=== PATIENT | male | born 1965 | race Caucasian/White ===

== ENCOUNTER 2019-07-21 06:13 | Observation (INO) ==
[2019-07-21] MEDS ORDERED: Aspirin 81 MG TAB.CHEW PO ONE (06:16)
[2019-07-21] MEDS ORDERED: Isovue-370 500 ML BOTTLE IVP ONE (06:31)
[2019-07-21 06:37] LABS: Basophils % 0.2 %; Eosinophils % 0.2 %; Hematocrit 44.1 % (37.5-50.1); Immature Granulocytes % 0.2 % (0-4); Lymphocytes % 8.2 %; Mean Corpuscular Hemoglobin 31.3 pg (28.0-33.3); Mean Corpuscular Volume 92.1 fL (83.0-100.0); Mean Platelet Volume 9.3 fL (9.4-12.4); Monocytes # 0.8 K/mcL (0.0-1.3); Monocytes % 6.9 %; Neutrophils # 10.3 K/mcL (1.6-8.9); Platelet Count 165 K/mcL (140-400); Red Blood Count 4.79 M/mcL (4.19-5.50); Red Cell Distribution Width 12.5 % (11.5-14.5); Segmented Neutrophils % 84.3 %; White Blood Count 12.3 K/mcL (4.3-11.1)
[2019-07-21] MEDS: Nitroglycerin 0.4 MG TAB.SUBL SL SCH ×3 (06:37→06:47)
[2019-07-21 06:42] LABS: Prothrombin Time 11.4 Seconds (9.4-12.1)
[2019-07-21 06:44] LABS: Activated Partial Thrombo Time 38.4 Seconds (26.0-36.0)
--- NOTE | 2019-07-21 06:44 | Emergency Department Note ---
Disposition Clinical Impression: Chest pain, rule out acute myocardial infarction Dyspnea Qualifiers: Dyspnea type: unspecified Qualified Code(s): R06.00 - Dyspnea, unspecified Disposition: Admitted As Inpatient Condition: Fair Referrals: Nat Souza CNP [Primary Care Provider] - Forms: ED Satisfaction Letter Time of Disposition: 08:17 Chest Pain HPI - General Chief Complaint: ED Arrhythmia/Palpitations Stated Complaint: CP Time Seen by Provider: 07/21/19 06:16 Source: patient Mode of arrival: ambulatory Limitations: no limitations Vital Signs Reviewed: Yes Nursing Notes Reviewed: Yes - History of Present Illness HPI Narrative: Alert and oriented nontoxic-appearing 53-year-old male presents for evaluation of nonradiating substernal chest pain that he describes as a pressure. Symptoms began earlier yesterday evening while at work and gradually worsened. He states the symptoms worsened significantly by around 10:00 yesterday evening. His pain is worsened with inspiration. It is not reproducible with palpation. He denies any significant productive cough or hemoptysis. He denies any associated fever, chills, nausea, vomiting, diaphoresis, or abdominal pain. He does state that he feels short of breath due to the pain. He denies any pain or swelling of the lower extremities. He denies any prior history of DVT or pulmonary embolism but does state a history of "neck cancer". In the past that he has received several rounds of chemotherapy for. He denies any prior cardiac history aside from an instance of pericarditis back in 1993. He denies any significant family cardiac history. Pt complaint: chest pain Onset (ago): hour(s) Duration: gradually worsening Onset: during exertion Pain Location: substernal Severity: severe Severity scale (1-10): 10 Quality: heaviness Pain Radiation: none Improves with: nothing Worsens with: inspiration Associated symptoms: Reports: dyspnea. Denies: nausea, vomiting, diaphoresis, syncope, palpitations, fever, cough, leg swelling Treatments prior to arrival chest pain: aspirin (81mg just prior to arrival) - Related Data Home Medications Medication Instructions Recorded Confirmed No Known Home Drugs 02/18/18 02/18/18 Allergies Allergy/AdvReac Type Severity Reaction Status Date / Time No Known Allergies Allergy Verified 02/18/18 08:03 All systems ED: reviewed and negative except as stated. Review of Systems: As Per HPI Constitutional: Denies: fever, chills, weakness, weight change Eyes: Denies: eye pain, eye discharge, vision change ENT ED: Denies: ear pain, throat pain, dental pain, hearing loss, epistaxis, congestion, dysphagia Cardiovascular: Reports: as per HPI, chest pain, dyspnea on exertion. Denies: palpitations, edema, syncope Respiratory: Reports: as per HPI, dyspnea. Denies: cough, wheezes, hemoptysis, stridor Gastrointestinal: Denies: abdominal pain, nausea, vomiting, diarrhea, constipation, hematemesis, melena, hematochezia Genitourinary: Denies: urgency, dysuria, frequency, hematuria Musculoskeletal: Denies: back pain, neck pain, arthralgia, myalgia Integumentary: Denies: rash, abrasion, lesions Neurological: Denies: headache, weakness, numbness, paresthesias, confusion, abnormal gait, vertigo Psychiatric: Denies: anxiety, depression, suicidal thoughts, homicidal thoughts, auditory hallucinations, visual hallucinations Endocrine: Denies: fatigue Hematological/Lymphatic: Denies: easy bleeding, easy bruising Allergic/Immunologic: Denies: facial swelling, urticaria Chest Pain PMH - Past Medical History Medical history: Reports: cancer Surgical history: Reports: herniorrhaphy, other Psychiatric history: Reports: no psych history - Social History Smoking Status: Never smoker Alcohol use: Reports: none Drug use: Reports: none Physical Exam - General General appearance: alert - Head Head exam: atraumatic, normocephalic, normal inspection - Eye Eye exam: Present: normal appearance, PERRL, EOMI. Absent: conjunctival injection - ENT ENT exam: mucous membranes moist - Neck Neck exam: Present: normal inspection, full ROM, trachea midline. Absent: meningismus - Chest Chest inspection: Present: normal inspection, symmetric chest wall rise. Absent: tenderness - Respiratory Respiratory exam: Present: normal lung sounds bilaterally. Absent: respiratory distress, wheezes, stridor, accessory muscle use, prolonged expiratory phase - Cardiovascular Cardiovascular exam: Present: normal rhythm, tachycardia, normal heart sounds - Abdominal Exam Abdominal exam: Present: soft, Non-Tender, normal bowel sounds - Extremities Exam Extremities exam: Present: normal inspection, full ROM. Absent: tenderness, pedal edema - Neurological Exam Neurological exam: Present: alert, oriented X3 - Psychiatric Psychiatric exam: Present: normal affect, normal mood - Skin Skin exam: Present: warm, dry, intact, normal color. Absent: rash, cyanosis, diaphoresis, pallor Course Course Narrative: 0652: I was informed of the patient's nurse the patient became hypotensive with a systolic of 73 after the third sublingual nitroglycerin. Presented to the room. The patient stated that he is no longer experiencing pain at rest although the pain with inspiration persist. He did become slightly diaphoretic. He also complains of some nausea. Zofran has been ordered. A repeat EKG was performed at 0657 and again shows sinus tachycardia at a rate of 107 bpm. CA interval 136, QRS duration 85, QT/QTc interval 348/465. Nonspecific ST elevation in leads 1 and V6 however did not meet STEMI criteria per Dr. Babcock. Dr. Babcock reviewed this repeat EKG as well. 0743: EKG repeated at this point. EKG again shows sinus tachycardia at a rate of 101 bpm without STEMI criteria. EKG reviewed by Dr. Mendel Zambrano as well. The patient states that his pain is nearly resolved at this point and his work of breathing has significantly improved. He is agreeable to admission to the hospital service for ACS rule out. 0815: I spoke with the admitting hospitalist, Dr. Lowry. The patient has been accepted to the hospitalist service for further evaluation and management. Vital Signs Temperature 98.4 F 07/21/19 06:15 Pulse Rate 115 07/21/19 06:15 Respiratory Rate 18 07/21/19 06:15 Blood Pressure 147/106 07/21/19 06:15 O2 Sat by Pulse Oximetry 100 07/21/19 06:15 Temperature 98.4 F 07/21/19 06:15 Pulse Rate 98 07/21/19 07:15 Respiratory Rate 18 07/21/19 07:15 Blood Pressure 105/54 07/21/19 07:15 O2 Sat by Pulse Oximetry 99 07/21/19 07:15 Oxygen Delivery Oxygen Delivery Nasal Cannula Chest Pain - Medical Records Medical records reviewed: Yes I reviewed the patient's medical records. - Lab Data Lab results reviewed: Yes I reviewed the patient's lab results. Lab results narrative: Lab Results 07/21/19 07/21/19 07/21/19 Range/Units 06:18 06:18 06:18 WBC 12.3 H (4.3-11.1) K/mcL RBC 4.79 (4.19-5.50) M/mcL Hgb 15.0 (12.9-16.9) g/dL Hct 44.1 (37.5-50.1) % MCV 92.1 (83.0-100.0) fL MCH 31.3 (28.0-33.3) pg MCHC 34.0 (31.6-35.5) g/dL RDW 12.5 (11.5-14.5) % Plt Count 165 (140-400) K/mcL MPV 9.3 L (9.4-12.4) fL Immature Gran % 0.2 (0-4) % Seg Neutrophils % 84.3 % Lymphocytes % 8.2 % Monocytes % 6.9 % Eosinophils % 0.2 % Basophils % 0.2 % Neutrophils # 10.3 H (1.6-8.9) K/mcL Lymphocytes # 1.0 (0.6-4.6) K/mcL Monocytes # 0.8 (0.0-1.3) K/mcL Eosinophils # 0.0 (0.0-0.6) K/mcL Basophils # 0.0 (0.0-0.2) K/mcL PT 11.4 (9.4-12.1) Seconds INR 1.0 APTT 38.4 H (26.0-36.0) Seconds Sodium 136 (136-145) mEq/L Potassium 4.0 (3.5-5.1) mEq/L Chloride 101 (98-107) mEq/L Carbon Dioxide 27 (23-29) mEq/L BUN 19 (6-20) mg/dL Creatinine 1.07 (0.70-1.30) mg/dL Est GFR ( Amer) > 60 (> 60) Est GFR (Non-Af Amer) > 60 (> 60) BUN/Creatinine Ratio 18 (6-26) Glucose 118 H (70-105) mg/dL Calculated Osmolality 285 (280-300) Calcium 10.0 (8.6-10.3) mg/dL Magnesium 1.9 (1.6-2.6) mg/dL Troponin I < 0.03 (< 0.04) ng/mL B-Natriuretic Peptide (Less than 100) pg/mL 07/21/19 Range/Units 06:18 WBC (4.3-11.1) K/mcL RBC (4.19-5.50) M/mcL Hgb (12.9-16.9) g/dL Hct (37.5-50.1) % MCV (83.0-100.0) fL MCH (28.0-33.3) pg MCHC (31.6-35.5) g/dL RDW (11.5-14.5) % Plt Count (140-400) K/mcL MPV (9.4-12.4) fL Immature Gran % (0-4) % Seg Neutrophils % % Lymphocytes % % Monocytes % % Eosinophils % % Basophils % % Neutrophils # (1.6-8.9) K/mcL Lymphocytes # (0.6-4.6) K/mcL Monocytes # (0.0-1.3) K/mcL Eosinophils # (0.0-0.6) K/mcL Basophils # (0.0-0.2) K/mcL PT (9.4-12.1) Seconds INR APTT (26.0-36.0) Seconds Sodium (136-145) mEq/L Potassium (3.5-5.1) mEq/L Chloride (98-107) mEq/L Carbon Dioxide (23-29) mEq/L BUN (6-20) mg/dL Creatinine (0.70-1.30) mg/dL Est GFR ( Amer) (> 60) Est GFR (Non-Af Amer) (> 60) BUN/Creatinine Ratio (6-26) Glucose (70-105) mg/dL Calculated Osmolality (280-300) Calcium (8.6-10.3) mg/dL Magnesium (1.6-2.6) mg/dL Troponin I (< 0.04) ng/mL B-Natriuretic Peptide 11 (Less than 100) pg/mL Result diagrams: 07/21/19 06:18 07/21/19 06:18 Lab Results 07/21/19 07/21/19 07/21/19 Range/Units 06:18 06:18 06:18 WBC 12.3 H (4.3-11.1) K/mcL RBC 4.79 (4.19-5.50) M/mcL Hgb 15.0 (12.9-16.9) g/dL Hct 44.1 (37.5-50.1) % MCV 92.1 (83.0-100.0) fL MCH 31.3 (28.0-33.3) pg MCHC 34.0 (31.6-35.5) g/dL RDW 12.5 (11.5-14.5) % Plt Count 165 (140-400) K/mcL MPV 9.3 L (9.4-12.4) fL Immature Gran % 0.2 (0-4) % Seg Neutrophils % 84.3 % Lymphocytes % 8.2 % Monocytes % 6.9 % Eosinophils % 0.2 % Basophils % 0.2 % Neutrophils # 10.3 H (1.6-8.9) K/mcL Lymphocytes # 1.0 (0.6-4.6) K/mcL Monocytes # 0.8 (0.0-1.3) K/mcL Eosinophils # 0.0 (0.0-0.6) K/mcL Basophils # 0.0 (0.0-0.2) K/mcL PT 11.4 (9.4-12.1) Seconds INR 1.0 APTT 38.4 H (26.0-36.0) Seconds Sodium 136 (136-145) mEq/L Potassium 4.0 (3.5-5.1) mEq/L Chloride 101 (98-107) mEq/L Carbon Dioxide 27 (23-29) mEq/L BUN 19 (6-20) mg/dL Creatinine 1.07 (0.70-1.30) mg/dL Est GFR ( Amer) > 60 (> 60) Est GFR (Non-Af Amer) > 60 (> 60) BUN/Creatinine Ratio 18 (6-26) Glucose 118 H (70-105) mg/dL Calculated Osmolality 285 (280-300) Calcium 10.0 (8.6-10.3) mg/dL Magnesium 1.9 (1.6-2.6) mg/dL Troponin I < 0.03 (< 0.04) ng/mL B-Natriuretic Peptide (Less than 100) pg/mL 07/21/19 Range/Units 06:18 WBC (4.3-11.1) K/mcL RBC (4.19-5.50) M/mcL Hgb (12.9-16.9) g/dL Hct (37.5-50.1) % MCV (83.0-100.0) fL MCH (28.0-33.3) pg MCHC (31.6-35.5) g/dL RDW (11.5-14.5) % Plt Count (140-400) K/mcL MPV (9.4-12.4) fL Immature Gran % (0-4) % Seg Neutrophils % % Lymphocytes % % Monocytes % % Eosinophils % % Basophils % % Neutrophils # (1.6-8.9) K/mcL Lymphocytes # (0.6-4.6) K/mcL Monocytes # (0.0-1.3) K/mcL Eosinophils # (0.0-0.6) K/mcL Basophils # (0.0-0.2) K/mcL PT (9.4-12.1) Seconds INR APTT (26.0-36.0) Seconds Sodium (136-145) mEq/L Potassium (3.5-5.1) mEq/L Chloride (98-107) mEq/L Carbon Dioxide (23-29) mEq/L BUN (6-20) mg/dL Creatinine (0.70-1.30) mg/dL Est GFR ( Amer) (> 60) Est GFR (Non-Af Amer) (> 60) BUN/Creatinine Ratio (6-26) Glucose (70-105) mg/dL Calculated Osmolality (280-300) Calcium (8.6-10.3) mg/dL Magnesium (1.6-2.6) mg/dL Troponin I (< 0.04) ng/mL B-Natriuretic Peptide 11 (Less than 100) pg/mL - Radiology Data Radiology results reviewed: Yes I reviewed the patient's radiology results. Chest CTA 07/21/19 07:37 IMPRESSION: No evidence of pulmonary embolism or significant pulmonary abnormality. D/ / Ysabel Smith MD / Ysabel Smith MD Interpreting Provider: Ysabel Smith MD - EKG Data EKG attestation: Yes I reviewed and interpreted this EKG. EKG results narrative: EKG shows a sinus tachycardia at a rate of 115 bpm. CA interval 146, QRS duration 85, QT/QTc interval 327/453. No ectopy noted. No significant ST elevations or depressions. No significant change in morphology when compared to an EKG dated from 12/02/1996.
[2019-07-21] MEDS ORDERED: 0.9 % Sodium Chloride 500 ML IVC ONE ×2 (06:52)
[2019-07-21] MEDS ORDERED: 0.9 % Sodium Chloride 500 ML ONE (06:53)
[2019-07-21 06:54] LABS: BUN/Creatinine Ratio 18 (6-26); Blood Urea Nitrogen 19 mg/dL (6-20); Carbon Dioxide 27 mEq/L (23-29); Chloride 101 mEq/L (98-107); Glucose 118 mg/dL (70-105); Magnesium 1.9 mg/dL (1.6-2.6); Osmolality,Calculated 285 (280-300); Sodium 136 mEq/L (136-145); Troponin I < 0.03 ng/mL (< 0.04); eGFR For African Americans > 60 (> 60); eGFR For Non-African Americans > 60 (> 60)
[2019-07-21] MEDS ORDERED: Ondansetron 4 MG/2 ML VIAL ONE (06:59)
[2019-07-21] MEDS: Ondansetron 4 MG/2 ML VIAL IVP ONE ×2 (07:00→07:03)
--- NOTE | 2019-07-21 08:54 | Internal Med History&Physical ---
Date of Encounter: 07/21/19 Time of Encounter: 08:52 Internal Medicine - H&P: HPI Chief complaint: chest pain Admitted From: Home Plans for Post Hospital Care: Home History of present illness: Mr. Beasley is a 53 year old male past medical history of neck cancer status post chemoradiation about 2 years ago, history of pericarditis and 1993 when he had LHC which was unremarkable came in with complaint of chest pain that has been ongoing for past 2 days. Patient's symptoms started with some dizziness for about 2 weeks. Since last 2-3 days has been having waxing and waning chest pain which is substernal in nature and nonradiating. It has gradually increased in intensity and was severe this morning enough to make him to come to the hospital about 10/10 in intensity. It is associated with sensation of dyspnea. P atient's pain was worsened with deep inspiration and lying flat Denies any fevers chills returned nose or sore throat. Has raspy voice at baseline since his neck surgery. Denies any diarrhea or decreased oral intake. Denies any syncopal events. He is otherwise healthy without any history of heart disease. Is otherwise physically active. Has history of hiatal hernia but denies any history of reflux. He is not taking any medications at home. Denies any allergies. Denies any lower extremity swelling. Patient was seen in the ER and was evaluated with lab significant for WBC of 12.3, minimally elevated glucose. Patient was given nitroglycerin which relieved his pain significantly however did drop his blood pressure which recovered and was associated with some dizziness. Patient also also given aspirin 324 mg and 1 L NS. Patient's EKG did not show some diffuse mild ST elevation however without STEMI criteria. CTA of chest did not show any PE and showed bilateral lower lobe atelectasis with no signs of infiltrate. Admission was requested for ACS rule out. Patient was examined on the floor where he seated had some chest discomfort on deep inspiration. Past Med Surg Social Fam HX - Past Medical History Medical history: cancer Additional medical history: pariocarditis heart cath, throat cancer with radiation and peg tube Psychiatric history: no psych history - Past Surgical History Surgical History: herniorrhaphy, other Additional surgical history: vasectomy, neck sx - Social History Smoking Status: Never smoker Smokeless Tobacco Status: No Alcohol use: none Drug use: none - Additional Family History Additional family history: no known family history Internal Medicine - H&P: Meds No Known Home Drugs 02/18/18 [History] Allergy/AdvReac Type Severity Reaction Status Date / Time No Known Allergies Allergy Verified 02/18/18 08:03 All Systems PM: A 10-system review of systems was performed and is negative for pertinent findings except as documented above in the HPI. - Constitutional Vitals: Temp Pulse Resp BP Pulse Ox 98.4 F 94 18 123/86 100 07/21/19 06:15 07/21/19 08:31 07/21/19 08:31 07/21/19 08:31 07/21/19 08:31 Exam: Constitutional: Vitals as noted. Conversant. No Apparent Distress. Eyes : Sclera white, conjunctiva clear, no lid lag, PEARLA. ENT : Grossly normal hearing. Moist mucus membranes. No JVD, no cervical lymphadenopathy. no thyromegaly or mass. Respiratory : No accessory muscle use, rales, rhonchi or wheezes. Crackles at base, not taking deep breaths due to pain Cardiovascular : RRR, +S1, +S2. no murmur, gallop, rubs. No chest wall tenderness GI/Abdominal : Soft, Non-tender, Non-distended, normal bowel sounds, soft, no peritoneal signs. no orgenomegaly or mass appreciated. no hernia. Musculoskeletal: no deformity noted. no edema or cyanosis. warm extremities, pulses palpable and symmetrical in UE/LE. no calf tenderness. Neurological: AO X3, CN II-XII grossly intact, grossly normal motor and sensory exam. Skin: No skin rash, lesions or ulcers noted. Pych: Good insight and judgement. Intact memory. AOx3. Internal Med - H&P Results - Labs CBC & Chem 7: 07/21/19 06:18 07/21/19 06:18 Labs: Short CBC 07/21/19 Range/Units 06:18 WBC 12.3 H (4.3-11.1) K/mcL Hgb 15.0 (12.9-16.9) g/dL Hct 44.1 (37.5-50.1) % Plt Count 165 (140-400) K/mcL Neutrophils # 10.3 H (1.6-8.9) K/mcL BMP 07/21/19 06:18 Sodium 136 Potassium 4.0 Chloride 101 Carbon Dioxide 27 BUN 19 Creatinine 1.07 Glucose 118 H Calcium 10.0 Cardiac Enzymes 07/21/19 Range/Units 06:18 Troponin I < 0.03 (< 0.04) ng/mL - EKG Data -: EKG Interpreted by Myself EKG shows normal: sinus rhythm Rate: tachycardia (half-[address] elevateion in I, II, v4, v5, v6 with UT depressioin) - EKG Data Prior EKG available for review: yes When compared to previous EKG: there is no significant change - Impressions ITS Impressions Chest CTA 07/21/19 07:37 IMPRESSION: No evidence of pulmonary embolism or significant pulmonary abnormality. D/ / Ysabel Smith MD / Ysabel Smith MD Interpreting Provider: Ysabel Smith MD - Assessment and Plan (1) Chest pain, rule out acute myocardial infarction Current Visit: Yes Status: Acute Assessment and plan: Patient's chest pain is positional and pleuritic in nature. EKG also with signs of pericarditis without any STEMI criteria. Troponin negative 1 We will keep patient on telemetry and trend troponin. We will obtain echoc ardiogram. CT of chest without any PE with bilateral basilar atelectasis. Patient has mild elevated WBCs which could be due to viral etiology, however patient without any symptoms. We will obtain respiratory infectious panel. We will start patient on treatment for pericarditis with aspirin and colchicine. We will obtain CRP and a pro-calcitonin. We will obtain A1c and lipid panel. We will consider stress test or cardiology consultation depending on further workup. (2) DVT prophylaxis Current Visit: Yes Status: Acute Assessment and plan: low risk ambulatory. - Time Spent With Patient Total time spent is greater than 50% in coordination of care (as documented) at patient's floor/unit and/or counseling patient:
[2019-07-21] MEDS ORDERED: Naloxone 0.4 MG/ML INJ IVP PRN (09:33)
[2019-07-21 10:47] LABS: Estimated Average Glucose 108 mg/dl
[2019-07-21] MEDS: Colchicine 0.6 MG TABLET PO SCH ×2 (10:48→20:18)
[2019-07-21 10:50] LABS: Chol/HDL Ratio 4.3 (0-4.9); Cholesterol 251 mg/dL (< 200); HDL Cholesterol 59 mg/dL (40-59); LDL Cholesterol,Calculated 170 mg/dL (0-99); Triglycerides 108 mg/dL (< 150)
[2019-07-21] MEDS ORDERED: Morphine Sulfate 2 MG/ML SYRINGE IVP PRN ×2 (11:41→21:10)
[2019-07-21] MEDS: Morphine Sulfate 2 MG/ML SYRINGE IVP PRN ×2 (11:59→17:10)
--- NOTE | 2019-07-21 13:35 | Cardiology Consult Note ---
Date of Encounter: 07/21/19 Time of Encounter: 12:30 Assessment and Plan (1) Pericarditis Current Visit: Yes Status: Acute Per cardiology: -ECG with diffuse ST elevation. -Symptoms consistent with pericarditis. -Troponins negative x2. -TTE pending. -Started on cholchicine and ASA per primary service. -Of note, reports history of pericarditis and [facility] 1993 without significant blockage. -Agree with ASA and cholchicine. -Further recs pending TTE. Qualifiers: Pericarditis type: unspecified type Chronicity: acute Qualified Code(s): I30.9 - Acute pericarditis, unspecified (2) Chest pain Current Visit: Yes Status: Acute Per cardiology: -Chest pain consistent with pericarditis. -Chest pain atypical for ACS. -ECG with diffuse ST elevation. -Troponins negative x2. -TTE pending. -Continue to trend troponins. Qualifiers: Chest pain type: unspecified Qualified Code(s): R07.9 - Chest pain, unspecified Discussion w patient/family: The assessment and plan as outlined above was discussed with the patient and/or family members who expressed understanding and agreement. All questions were answered. Thank you for involving us in the care of your patient. Please call with any questions. Discussed and reviewed with History of Present Illness Consult date: 07/21/19 Requesting physician: Aftab Lowry Consult reason: chest pain Chief complaint: chest pain History of present illness: Mr. Beasley is a 53 year old male with a relevant past medical history of pericarditis, throat cancer s/p chemo, who presented to [facility] with complaints of chest pain. Patient states symptoms started on Friday. Patient states chest pain feels like pressure in his chest. Denies radiation. Reports symptoms worse with deep inspiration and with leaning forward. Reports he is very active and goes to the gym multiple times per week without symptoms. Reports shortness of breath. Past Med Surg Social Fam HX - Past Medical History Attestation: Yes The following information was validated with the patient. Source: patient, old records reviewed Medical history: cancer Additional medical history: pariocarditis heart cath, throat cancer with radiation and peg tube Psychiatric history: no psych history - Past Surgical History Surgical History: herniorrhaphy, other Additional surgical history: vasectomy, neck sx, tonsilectomy, feeding tube placed during cancer tx, hernia sx. - Social History Smoking Status: Never smoker Smokeless Tobacco Status: No Alcohol use: none Drug use: none Medications and Allergies No Known Home Drugs 02/18/18 [History] Allergy/AdvReac Type Severity Reaction Status Date / Time No Known Allergies Allergy Verified 07/21/19 10:24 All Systems Review: The remainder of the systems were reviewed and are negative - Cardiovascular Cardiovascular: as per HPI, chest pain at rest, dyspnea at rest Physical Examination Vital Signs, Last 4 Hours BP 07/21/19 11:38 115/74 General: Conversant, No Apparent Distress HEENT: Atraumatic, Normocephaly, Mucus Membranes Moist Neck: No JVD, Normal carotid pulses Cardiac: Reg Rate and Rhythm, Normal S1 and S2, No Murmur Lungs: Normal Breath Sounds, No Wheeze, Rales, Rhonchi Neuro: Alert and responsive, No focal deficits noted Abdomen: Soft, Non-Tender Skin: No rashes noted on visualized skin Musculoskeletal: Other (Chest pain reproduceable with palpation. ) Extremities: No Clubbing, No Cyanosis, No Edema, Normal Pulses Results 07/21/19 06:18 07/21/19 06:18 Lab Results Impressions Chest CTA 07/21/19 07:37 IMPRESSION: No evidence of pulmonary embolism or significant pulmonary abnormality. D/ / Ysabel Smith MD / Ysabel Smith MD Interpreting Provider: Ysabel Smith MD Active Medications Aspirin (Aspirin Ec) 650 mg PO TID [facility] Stop: 07/28/19 15:01 Colchicine (Colcrys) 0.6 mg PO BID [facility] Stop: 01/20/20 09:43 Last Admin: 07/21/19 10:48 Dose: 0.6 mg Documented by: Morphine Sulfate (Morphine) 1 mg IVP Q6HR PRN; Protocol PRN Reason: Chest Pain Stop: 01/20/20 11:42 Last Admin: 07/21/19 11:59 Dose: 1 mg Documented by: Naloxone HCl (Narcan) 0.4 mg IVP Q2MPRN PRN PRN Reason: SEE COMMENTS Stop: 01/20/20 09:34 Laboratory Tests 07/21/19 07/21/19 07/21/19 06:18 06:18 09:53 WBC 12.3 H Hgb 15.0 Creatinine 1.07 Troponin I < 0.03 < 0.03 - Imaging and Cardiology Chest Xray: report reviewed Echo: pending - EKG Interpretation EKG results cardiology: personally reviewed (ECG with diffuse ST elevation.), other (Telemetry reviewed with average HR 95, SR. Rare PVCs, PACs noted.) Consult Discharge Plan - Plan Referrals: Nat Souza, FLAME BURNER [Primary Care Provider] - HAS-BLED Score - Score Medication usage predisposing to bleeding: Antiplatelet agents, NSAIDs, Anticoagulants Score: 1
[2019-07-21 14:10] LABS: C-Reactive Protein < 5 mg/L (Less than 10)
[2019-07-21 14:26] LABS: Adenovirus Not Detected (Not Detect); Coronavirus 229E Not Detected (Not Detect); Coronavirus HKU1 Not Detected (Not Detect); Coronavirus NL63 Not Detected (Not Detect)
[2019-07-21 14:27] LABS: Bordetella Pertussis Not Detected (Not Detect); Chlamydophila pneumoniae Not Detected (Not Detect); Coronavirus OC43 Not Detected (Not Detect); Human Metapneumovirus Not Detected (Not Detect); Human Rhinovirus/Enterovirus Not Detected (Not Detect); Influenza A Subtype 2009 H1 Not Detected (Not Detect); Influenza A Untypeable Not Detected (Not Detect); Influenza B Not Detected (Not Detect); Mycoplasma pneumoniae Not Detected (Not Detect); Parainfluenza Virus 1 Not Detected (Not Detect); Parainfluenza Virus 2 Not Detected (Not Detect); Parainfluenza Virus 3 Not Detected (Not Detect); Parainfluenza Virus 4 Not Detected (Not Detect); Respiratory Syncytial Virus Not Detected (Not Detect)
[2019-07-21] MEDS: Aspirin Enteric Coated 325 MG Tablet PO SCH ×2 (14:27→20:18)
--- NOTE | 2019-07-21 16:09 | Electrocardiograph Report ---
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
[2019-07-21] MEDS ORDERED: Melatonin 3 MG TABLET PO PRN (21:12)
[2019-07-22 05:17] LABS: Basophils % 0.3 %; Eosinophils % 0.3 %; Hematocrit 41.5 % (37.5-50.1); Hemoglobin 13.5 g/dL (12.9-16.9); Immature Granulocytes % 0.3 % (0-4); Lymphocytes % 13.6 %; Mean Corpuscular HGB Conc 32.5 g/dL (31.6-35.5); Mean Corpuscular Hemoglobin 31.2 pg (28.0-33.3); Mean Corpuscular Volume 95.8 fL (83.0-100.0); Mean Platelet Volume 9.8 fL (9.4-12.4); Monocytes # 0.9 K/mcL (0.0-1.3); Monocytes % 11.9 %; Neutrophils # 5.5 K/mcL (1.6-8.9); Platelet Count 146 K/mcL (140-400); Red Blood Count 4.33 M/mcL (4.19-5.50); Red Cell Distribution Width 12.7 % (11.5-14.5); Segmented Neutrophils % 73.6 %; White Blood Count 7.5 K/mcL (4.3-11.1)
[2019-07-22 05:32] LABS: BUN/Creatinine Ratio 12 (6-26); Blood Urea Nitrogen 12 mg/dL (6-20); Carbon Dioxide 26 mEq/L (23-29); Chloride 103 mEq/L (98-107); Potassium 3.9 mEq/L (3.5-5.1); Sodium 138 mEq/L (136-145); eGFR For African Americans > 60 (> 60)
[2019-07-22 05:33] LABS: Alanine Aminotransferase 12 Units/L (7-52); Albumin/Globulin Ratio 1.8 (1.1-2.2); Alkaline Phosphatase 39 Units/L (34-104); Aspartate Amino Transferase 16 Units/L (13-39); Bilirubin,Total 0.7 mg/dL (0.3-1.0); Calcium 9.2 mg/dL (8.6-10.3); Globulin 2.2 g/dL (2.4-3.5); Glucose 115 mg/dL (70-105); Osmolality,Calculated 287 (280-300); Total Protein 6.2 g/dL (6.4-8.9); eGFR For Non-African Americans > 60 (> 60)
--- NOTE | 2019-07-22 06:50 | Electrocardiograph Report ---
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
--- NOTE | 2019-07-22 06:51 | Electrocardiograph Report ---
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
[2019-07-22] MEDS: Colchicine 0.6 MG TABLET PO SCH (08:41)
[2019-07-22] MEDS: Aspirin Enteric Coated 325 MG Tablet PO SCH ×2 (08:41→14:23)
[2019-07-22 11:44] VITALS: BP 103/80
--- NOTE | 2019-07-22 13:07 | Cardiology Progress Note ---
Date of Encounter: 07/22/19 Time of Encounter: 12:00 Assessment and Plan (1) Pericarditis Current Visit: Yes Status: Acute Per cardiology: -ECG with diffuse ST elevation consistent with pericarditis. -pleuritic chest pain symptoms consistent with pericarditis. -Troponins negative x3. -TTE EF 60%, mild tricuspid regurgitation, mild mitral regurgitaion, mild pulmonic regurgitation . No pericardial effusion seen. -Started on cholchicine and ASA per primary service. -Of note, reports history of pericarditis and [facility] 1993 without significant blockage. -Agree with ASA and cholchicine per guidelines.Continue asa until symptom resolution and then wean off ( about 4 weeks). For recurrent pericarditis cholchicine is recommended for 6 months per GDMT. -out-pt f/u with cardiology in 2 weeks. Cardiology will sign off. Qualifiers: Pericarditis type: unspecified type Chronicity: acute Qualified Code(s): I30.9 - Acute pericarditis, unspecified Discussion w patient/family: The assessment and plan as outlined above was discussed with the patient and/or family members who expressed understanding and agreement. All questions were an swered. Thank you for involving us in the care of your patient. Please call with any questions. Subjective Principal diagnosis: pericarditis Interval history: Mr. Beasley is resting in bed. Chest pain improving. Continues to occur with his chronic cough or when he takes deep breaths. Notes he has sweated more today. Objective Vital Signs, Last 4 Hours Temp Pulse Resp BP Pulse Ox 07/22/19 11:40 98.0 F 82 15 103/80 96 General: Conversant, No Apparent Distress HEENT: Atraumatic, Normocephaly, Mucus Membranes Moist Neck: No JVD, Normal carotid pulses Cardiac: Reg Rate and Rhythm, Normal S1 and S2, No Murmur Lungs: Normal Breath Sounds, No Wheeze, Rales, Rhonchi Neuro: Alert and responsive, No focal deficits noted Abdomen: Soft, Non-Tender Skin: No rashes noted on visualized skin Musculoskeletal: No Chest Wall Tenderness Extremities: No Clubbing, No Cyanosis, No Edema, Normal Pulses Results 07/22/19 03:58 07/22/19 03:58 Lab Results 07/21/19 07/21/19 07/22/19 06:18 13:41 03:58 WBC 7.5 Hgb 13.5 D Hct 41.5 Plt Count 146 Sodium 136 Potassium 4.0 Chloride 101 Carbon Dioxide 27 BUN 19 Creatinine 1.07 Glucose 118 H Calcium 10.0 Magnesium 1.9 Total Bilirubin AST ALT Alkaline Phosphatase Troponin I < 0.03 < 0.03 07/22/19 03:58 WBC Hgb Hct Plt Count Sodium 138 Potassium 3.9 Chloride 103 Carbon Dioxide 26 BUN 12 Creatinine 0.97 Glucose 115 H Calcium 9.2 Magnesium Total Bilirubin 0.7 AST 16 ALT 12 Alkaline Phosphatase 39 Troponin I - EKG Interpretation EKG results cardiology: personally reviewed - VTE Reasons for not Prescribing Prophylaxis: Treatment not Indicated - Low risk for VTE Consult Discharge Plan - Plan Instructions: Chest Pain (DC), Acute Pericarditis (DC) Referrals: Nat Souza CNP [Primary Care Provider] - 07/26/19 10:00 am
--- NOTE | 2019-07-22 14:19 | Discharge Summary ---
<Cy Bowens I - Last Filed: 07/22/19 14:45> - NOTES TO OUTPATIENT PROVIDER Notes to Outpatient Provider: Presents with increasing chest discomfort. States worse with deep inspiration , relieved by leaning forward ECG demonstrates minor diffuse ST segment elevation. Presentation, ECG suggests pericarditis . discharged on ibuprofen and colchicine and instructed to follow up with PCP and cardiology . Date of Encounter: 07/22/19 Time of Encounter: 08:30 - Discharge Diagnosis (1) Dyspnea Priority: Secondary Status: Acute Qualifiers: Dyspnea type: unspecified Qualified Code(s): R06.00 - Dyspnea, unspecified (2) Pericarditis Priority: Primary Status: Acute Qualifiers: Pericarditis type: unspecified type Chronicity: acute Qualified Code(s): I30.9 - Acute pericarditis, unspecified Hospital course: Mr. 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 Presents with increasing chest discomfort. States worse with deep inspiration and laying back and relive by leaning forward .Patient denies recent cough sore throat or viral like illness No recent chest pain or unusual dyspnea with activity.during addmission Serial troponin measurements negative. ECG demonstrates minor diffuse ST segment elevation. TTE showes EF 60% mild tricuspid regurgitation, mild mitral regurgitaion, mild pulmonic regurgitation . No pericardial effusion seen. -Started on cholchicine and ASA per primary service.Patient is stable and understand treatment and plan . will be discharged home on NSAID and colchicine and to be followed up with cardiology and PCP . - Time Spent with Patient Total time spent providing and/or coordinating discharge services: - Discharge Medications Prescriptions: New Colchicine [Colcrys] 0.6 mg PO BID 20 Days #40 tablet Ibuprofen [Motrin] 600 mg PO Q8HR 21 Days #42 tab Home Medications: Colchicine [Colcrys] 0.6 mg PO BID 20 Days #40 tablet 07/22/19 [Rx] Ibuprofen [Motrin] 600 mg PO Q8HR 21 Days #42 tab 07/22/19 [Rx] Allergies/Adverse Reactions: Allergy/AdvReac Type Severity Reaction Status Date / Time No Known Allergies Allergy Verified 07/21/19 10:24 Date of admission: 07/21/19 08:36 Primary care physician: Nat Souza CNP Consults: 07/21/19 12:28 Consult to Cardiology [CONS] Routine Comment: Consulting Provider: Cardiology Leanne Reason for Consult: chest pain Call Completed: Yes - Constitutional Vitals: Temp Pulse Resp BP Pulse Ox 98.0 F 82 15 103/80 96 07/22/19 11:40 07/22/19 11:40 07/22/19 11:40 07/22/19 11:40 07/22/19 11:40 Exam: Constitutional: Vitals as noted. Conversant. No Apparent Distress. Eyes : Sclera white, conjunctiva clear, no lid lag, PEARLA. ENT : Grossly normal hearing. Moist mucus membranes. No JVD, no cervical lymphadenopathy. no thyromegaly or mass. Respiratory : No accessory muscle use, rales, rhonchi or wheezes. Crackles at base, not taking deep breaths due to pain Cardiovascular : RRR, +S1, +S2. no murmur, gallop, rubs. No chest wall tenderness GI/Abdominal : Soft, Non-tender, Non-distended, normal bowel sounds, soft, no peritoneal signs. no orgenomegaly or mass appreciated. no hernia. Musculoskeletal: no deformity noted. no edema or cyanosis. warm extremities, pulses palpable and symmetrical in UE/LE. no calf tenderness. Neurological: AO X3, CN II-XII grossly intact, grossly normal motor and sensory exam. Skin: No skin rash, lesions or ulcers noted. Pych: Good insight and judgement. Intact memory. AOx3. - Patient Status Disposition: Home, Self-Care Condition: Fair Functional capacity at discharge: independent ambulation Overall status at discharge: patient is back to baseline - Discharge Instructions Instructions: Chest Pain (DC), Acute Pericarditis (DC) Follow Up With: Nat Souza CNP [Primary Care Provider] - 07/26/19 10:00 am - Diet and Activity Activity: increase activity as tolerated Diet: advance to your usual diet - VTE Reasons for not Prescribing Prophylaxis: Treatment not Indicated - Low risk for VTE <Eileen Wakefield - Last Filed: 07/22/19 15:01> Date of Encounter: 07/22/19 Time of Encounter: 14:59 - Discharge Diagnosis (1) Chest pain, rule out acute myocardial infarction Status: Acute (2) DVT prophylaxis Status: Acute Hospital course: Mr. Beasley is a 53 year old male - Time Spent with Patient Total time spent providing and/or coordinating discharge services: Date of admission: 07/21/19 08:36 Primary care physician: Nat Souza CNP Consults: 07/21/19 12:28 Consult to Cardiology [CONS] Routine Comment: Consulting Provider: Cardiology Leanne Reason for Consult: chest pain Call Completed: Yes - Constitutional Vitals: Temp Pulse Resp BP Pulse Ox 98.0 F 82 15 103/80 96 07/22/19 11:40 07/22/19 11:40 07/22/19 11:40 07/22/19 11:40 07/22/19 11:40 - Attending Attestation I saw evaluated and examined this patient and reviewed objective data including labs and my medical decision-making was reviewed with the Resident Physician. I agree with the documented findings, disposition and discharge plan as described except to any changes set forth below. We independently had [id number] contact with the patient. Patient with a history of neck cancer status post chemoradiation presented to the ER with complaints of chest pain. He was found to have diffuse ST elevation on EKG and diagnosed with pericarditis. He was placed on colchicine and aspirin per cardiology recommendations. His symptoms have significantly improved today. 2-D echocardiogram was done which showed normal ejection fraction and no pericardial effusion. At this time cardiology recommends that he be discharged on NSAIDs and colchicine with outpatient follow-up. Time spent on discharge: 8 min
--- NOTE | 2019-07-23 10:56 | Electrocardiograph Report ---
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
--- NOTE | 2019-07-29 11:44 | Electrocardiograph Report ---
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
== END 2019-07-22 14:27 | disposition home or self-care (01) ==
LOC: 3BNU 06:13 → EMEROOARM 06:13 → SUATTDRO 08:36 → 3BNU 09:13
PROVIDERS: ADMIT Internal Medicine; ATTEND Internal Medicine

== ENCOUNTER 2022-01-13 22:37 | Observation (INO) ==
[2022-01-13] MEDS ORDERED: Racepinephrine Neb 0.5 ML VIAL IH ONE (23:08)
[2022-01-13 23:15] LABS: Amorphous Sediment,Urine Few per hpf (None-Few); Bilirubin,Urine Negative (Negative); Blood,Urine Small (Negative); Clarity,Urine Ex.Turbid (Clear); Color,Urine Yellow (Yellow); Glucose,Urine (UA) Normal (Normal); Ketones,Urine 10 mg/dL (Negative); Leukocyte Esterase,Urine Negative (Negative); Nitrite,Urine Negative (Negative); PH,Urine 7.5 pH Units (5.0-8.0); Protein,Urine 30 mg/dL (Neg-Trace); RBC,Urine 15-30 per hpf (0-3); Urobilinogen,Urine Normal (Normal); WBC,Urine 0-3 per hpf (0-3)
[2022-01-13 23:20] LABS: Basophils % 0.4 %; Eosinophils # 0.1 K/mcL (0.0-0.6); Eosinophils % 1.1 %; Hemoglobin 13.6 g/dL (12.9-16.9); Immature Granulocytes % 0.2 % (0-4); Lymphocytes # 0.3 K/mcL (0.6-4.6); Lymphocytes % 5.6 %; Mean Corpuscular HGB Conc 33.2 g/dL (31.6-35.5); Mean Corpuscular Hemoglobin 30.4 pg (28.0-33.3); Mean Corpuscular Volume 91.5 fL (83.0-100.0); Mean Platelet Volume 9.1 fL (9.4-12.4); Monocytes # 0.2 K/mcL (0.0-1.3); Monocytes % 4.4 %; Neutrophils # 4.9 K/mcL (1.6-8.9); Platelet Count 145 K/mcL (140-400); Red Blood Count 4.48 M/mcL (4.19-5.50); Red Cell Distribution Width 12.5 % (11.5-14.5); Segmented Neutrophils % 88.3 %; White Blood Count 5.5 K/mcL (4.3-11.1)
[2022-01-13] MEDS: Ringers Solution, Lactated 1,000 ML IVC SCH (23:32)
[2022-01-13 23:45] LABS: Alanine Aminotransferase 16 Units/L (7-52); Albumin 3.9 g/dL (3.5-5.7); Albumin/Globulin Ratio 1.4 (1.1-2.2); Alkaline Phosphatase 37 Units/L (34-104); Aspartate Amino Transferase 20 Units/L (13-39); BUN/Creatinine Ratio 21 (6-26); Bilirubin,Direct 0.1 mg/dL (0.0-0.2); Bilirubin,Indirect 0.3 mg/dL (0.0-1.0); Bilirubin,Total 0.4 mg/dL (0.3-1.0); Blood Urea Nitrogen 18 mg/dL (6-20); Calcium 9.3 mg/dL (8.6-10.3); Carbon Dioxide 32 mEq/L (23-29); Chloride 98 mEq/L (98-107); Globulin 2.7 g/dL (2.4-3.5); Glucose 120 mg/dL (70-105); Magnesium 1.4 mg/dL (1.6-2.6); Osmolality,Calculated 291 (280-300); Phosphorous 2.6 mg/dL (2.7-4.5); Potassium 3.7 mEq/L (3.5-5.1); Sodium 139 mEq/L (136-145); Total Protein 6.6 g/dL (6.4-8.9); Troponin I 0.03 ng/mL (< 0.04); eGFR For African Americans > 60 (> 60); eGFR For Non-African Americans > 60 (> 60)
[2022-01-13 23:58] LABS: Influenza A PCR Positive (Negative); Influenza B PCR Negative (Negative); Resp. Syncytial Virus PCR Negative (Negative)
[2022-01-14 00:16] LABS: SARS-CoV-2 by PCR (In House) Negative (Negative)
[2022-01-14] MEDS: Ringers Solution, Lactated 1,000 ML IVC SCH ×2 (00:32→01:31)
[2022-01-14] MEDS ORDERED: Naloxone 0.4 MG/ML INJ IVP PRN (01:11)
[2022-01-14] MEDS ORDERED: Acetaminophen 325 MG TABLET PO PRN (01:11)
[2022-01-14] MEDS: Budesonide/Formoterol 80/4.5 1 PUFF INH IH SCH ×3 (02:07→20:30)
[2022-01-14 06:51] LABS: Basophils % 0.1 %; Hematocrit 37.1 % (37.5-50.1); Hemoglobin 12.1 g/dL (12.9-16.9); Immature Granulocytes % 0.3 % (0-4); Lymphocytes # 0.4 K/mcL (0.6-4.6); Lymphocytes % 3.8 %; Mean Corpuscular HGB Conc 32.6 g/dL (31.6-35.5); Mean Corpuscular Volume 92.1 fL (83.0-100.0); Mean Platelet Volume 9.2 fL (9.4-12.4); Monocytes # 1.1 K/mcL (0.0-1.3); Monocytes % 10.6 %; Neutrophils # 8.6 K/mcL (1.6-8.9); Platelet Count 139 K/mcL (140-400); Red Blood Count 4.03 M/mcL (4.19-5.50); Red Cell Distribution Width 12.4 % (11.5-14.5); Segmented Neutrophils % 85.2 %
[2022-01-14 06:52] LABS: White Blood Count 10.1 K/mcL (4.3-11.1)
[2022-01-14 06:57] LABS: INR 1.1; Prothrombin Time 12.5 Seconds (9.4-12.1)
[2022-01-14 07:03] LABS: Troponin I 0.06 ng/mL (< 0.04)
[2022-01-14 07:11] LABS: BUN/Creatinine Ratio 16 (6-26); Blood Urea Nitrogen 14 mg/dL (6-20); Calcium 8.9 mg/dL (8.6-10.3); Carbon Dioxide 32 mEq/L (23-29); Chloride 98 mEq/L (98-107); Glucose 128 mg/dL (70-105); Magnesium 1.8 mg/dL (1.6-2.6); Osmolality,Calculated 288 (280-300); Potassium 4.3 mEq/L (3.5-5.1); Sodium 138 mEq/L (136-145); eGFR For African Americans > 60 (> 60); eGFR For Non-African Americans > 60 (> 60)
[2022-01-14] MEDS: Azithromycin 500 MG in 0.9 % Sodium Chloride 250 ML IVPB SCH (09:22)
[2022-01-14] MEDS: *HR* Enoxaparin 40 MG/0.4 ML SYRINGE SQ SCH (09:23)
[2022-01-14] MEDS: cefTRIAXone 1,000 MG in 0.9 % Sodium Chloride 10 ML IVP SCH (09:23)
[2022-01-14 10:41] LABS: Estimated Average Glucose 114 mg/dl; Hemoglobin A1C 5.6 %
[2022-01-14] MEDS: Ipratropium/Albuterol Neb 3 ML IH SCH ×5 (10:57→23:25)
[2022-01-14] MEDS: Ondansetron 4 MG/2 ML VIAL IVP PRN ×2 (12:26→20:14)
[2022-01-14] MEDS ORDERED: Melatonin 3 MG TABLET PO PRN (14:21)
[2022-01-14] MEDS: Ibuprofen 600 MG TABLET PO PRN (17:32)
[2022-01-15 01:40] LABS: Hemoglobin 11.6 g/dL (12.9-16.9); Mean Corpuscular HGB Conc 34.1 g/dL (31.6-35.5); Mean Corpuscular Hemoglobin 31.4 pg (28.0-33.3); Mean Corpuscular Volume 92.1 fL (83.0-100.0); Red Blood Count 3.69 M/mcL (4.19-5.50); Red Cell Distribution Width 12.4 % (11.5-14.5)
[2022-01-15 01:41] LABS: Basophils % 0.1 %; Eosinophils # 0.1 K/mcL (0.0-0.6); Eosinophils % 0.6 %; Immature Granulocytes % 0.3 % (0-4); Lymphocytes # 0.7 K/mcL (0.6-4.6); Lymphocytes % 8.9 %; Mean Platelet Volume 9.2 fL (9.4-12.4); Monocytes # 0.7 K/mcL (0.0-1.3); Monocytes % 8.5 %; Neutrophils # 6.5 K/mcL (1.6-8.9); Platelet Count 134 K/mcL (140-400); Segmented Neutrophils % 81.6 %
[2022-01-15 01:58] LABS: BUN/Creatinine Ratio 14 (6-26); Blood Urea Nitrogen 11 mg/dL (6-20); Calcium 8.8 mg/dL (8.6-10.3); Carbon Dioxide 33 mEq/L (23-29); Chloride 98 mEq/L (98-107); Glucose 97 mg/dL (70-105); Magnesium 1.7 mg/dL (1.6-2.6); Osmolality,Calculated 285 (280-300); Potassium 3.8 mEq/L (3.5-5.1); Sodium 138 mEq/L (136-145); eGFR For African Americans > 60 (> 60); eGFR For Non-African Americans > 60 (> 60)
[2022-01-15 02:00] LABS: Phosphorous 3.7 mg/dL (2.7-4.5)
[2022-01-15] MEDS: Ibuprofen 600 MG TABLET PO PRN (03:17)
[2022-01-15] MEDS: Ipratropium/Albuterol Neb 3 ML IH SCH ×3 (03:43→11:25)
[2022-01-15] MEDS: Budesonide/Formoterol 80/4.5 1 PUFF INH IH SCH (07:31)
[2022-01-15] MEDS: *HR* Enoxaparin 40 MG/0.4 ML SYRINGE SQ SCH (07:33)
[2022-01-15] MEDS: cefTRIAXone 1,000 MG in 0.9 % Sodium Chloride 10 ML IVP SCH (07:34)
[2022-01-15] MEDS: Azithromycin 500 MG in 0.9 % Sodium Chloride 250 ML IVPB SCH (07:34)
[2022-01-15 10:15] VITALS: BP 108/70; PULSE 102; TEMP 98.5
[2022-01-15 11:26] VITALS: O2SAT 97
== END 2022-01-15 12:35 | disposition home or self-care (01) ==
LOC: EMEROOARM 22:37 → 3BNU 22:37 → SUATTDRO 01-14 01:11 → 3BNU 01-14 02:20
PROVIDERS: ADMIT Internal Medicine; ATTEND Internal Medicine